=== PATIENT | female | born 1965 | race Caucasian/White ===

== ENCOUNTER 2017-05-08 07:58 | Outpatient (CLI) | payer OTHER | END 2017-05-08 07:59 | disposition home or self-care (01) | LOC: DTY/OP 07:58 | PROVIDERS: ATTEND Surgery | DX: G47.30 Sleep apnea, unspecified (principal) | CPT/HCPCS: 97802 ==

== ENCOUNTER 2018-04-08 08:41 | Outpatient (CLI) | payer OTHER ==
--- NOTE | 2018-04-08 11:51 | MRI ---
MRI LUMBAR SPINE WITHOUT CONTRAST: HISTORY: Acute left-sided back pain with sciatica. Numbness in the left foot and toes. COMPARISON: None. TECHNIQUE: MRI of the lumbar spine is performed without intravenous Gadolinium administration. Multisequential, multiplanar imaging is performed. FINDINGS: Appropriate T1 marrow signal intensity of the lumbar vertebrae. Lumbar spine vertebral body height is maintained. There is no fracture. 3.6 mm of retrolisthesis of L3 upon L4, 5.8 mm anterolisthesis of L4 upon L5, 3.3 mm of retrolisthesis of L5 upon S1. No significant STIR hyperintensity to suggest vertebral body edema or ligamentous injury. Symmetric signal intensity of the psoas muscles. Appropriate signal intensity in the visualized dawna d organs. Right extrarenal pelvis is noted. There is a T2 hyperintensity in the left adnexa, incompletely evaluated and may be of ovarian origin. Nonemergent pelvic ultrasound. Conus medullaris terminates at the mid L1 level. Questionable syrinx in the distal thoracic cord, in completely evaluated. T12-L1: Desiccation with mild to moderate loss of disk space height. Small left and right paracentr al disk bulges with mild central canal stenosis. Mild bilateral foraminal narrowing. L1-L2: Mild loss of disk space height. Broad-based disk bulge results in mild central canal stenosi s. Right and left neural foramina are patent. L2-L3: Adequate disk hydration. No significant central canal stenosis. Neural foramina are patent. L3-L4: Mild loss of disk space height. Broad-based disk bulge, ligamentum flavum thickening, and fa cet hypertrophy result in mild to moderate central canal stenosis. The right neural foramen is paten t. Moderate left foraminal narrowing. L4-L5: Mild loss of disk space height. Broad-based disk bulge, ligamentum flavum thickening, and fa cet hypertrophy result in severe central canal stenosis. Mild right and moderate to severe left fora hortencia narrowing. L5-S1: There is a desiccation with moderate loss of disk space height. There is a broad-based disk bulge which does not cause any significant stenosis of the thecal sac. However, there is narrowing o f both subarticular zones, right greater than left. Partial obscuration of traversing right S1 nerve root. Left subarticular zone is unremarkable. There is moderate to severe right and moderate left foraminal narrowing. There appears to be a left hemilaminotomy defect at L5-S1. Correlate with past medical history. IMPRESSION: 1. Degenerative changes of the lumbar spine as detailed above. 2. Surgery with a hemilaminotomy defect at L5-S1. 3. Questionable syrinx of the distal thoracic cord, incompletely evaluated. Further evaluation with a pre- and postcontrast imaging of the cervical and thoracic spine is recommended to evaluate the co rd and exclude any possible cord abnormality. 4. Possible left ovarian cyst. 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 CODE T POS: [facility]
== END 2018-04-08 08:42 | disposition home or self-care (01) ==
LOC: MRI 08:41
PROVIDERS: ATTEND Family Medicine
DX: M54.42 Lumbago with sciatica, left side (principal); M47.816 Spondylosis without myelopathy or radiculopathy, lumbar region; Z98.890 Other specified postprocedural states
CPT/HCPCS: 72148

== ENCOUNTER 2018-05-13 12:07 | Outpatient (CLI) | payer OTHER ==
--- NOTE | 2018-05-13 16:10 | MRI ---
MRI CERVICAL SPINE WITH AND WITHOUT CONTRAST: Date: 05/13/18 Multiplanar, multisequential imaging of cervical spine obtained. Postcontrast images obtained after a dministration of IV MultiHance. INDICATION: Possible syrinx of cord. Prior MRI of 04/08/18 described evidence of a syrinx in the lower thoracic s pine and further evaluation with pre and postcontrast exam was recommended. FINDINGS: Postoperative changes are seen at the C5-6 level. Anterior plate and screws are present transfixing t hese levels and there is interbody implant. This hardware does produce artifact. The vertebral bodies maintain height and alignment. At the C3-4 level, there is a mild disc bulge present, mildly effacing the anterior subarachnoid spac e. No evidence of cord impingement. There is left facet hypertrophy which does result in left foramin al stenosis. At C4-5, there is mild disc bulge and spondylosis. Mild left uncinate hypertrophy mildly encroaches i nto the left foramina. At C5-6, postoperative changes are noted. Posterior spondylitic changes efface the anterior subarachn oid space. The foramina appear patent. At C6-7, mild disc bulge and spondylitic change flatten the anterior thecal sac. No cord impingement. Evaluation of the spinal cord shows a mildly prominent central canal at the C5-6 level. There is no a bnormal enhancement seen within this cord on the postcontrast images. IMPRESSION: 1. Postoperative changes at C5-6 as described above. There are degenerative changes of spondylosis a s described above. 2. 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 No abnormal enhancement. POS: [facility]
--- NOTE | 2018-05-13 16:14 | MRI ---
MRI OF THORACIC SPINE WITH AND WITHOUT CONTRAST: 05/13/18 Multiplanar and multisequential imaging of thoracic spine obtained. Postcontrast images were obtained . INDICATIONS: MRI of lumbar spine on 04/08/18 described possible syrinx of the lower thoracic cord. Pre and postcont rast MRI was recommended to further evaluate. FINDINGS: The thoracic vertebrae maintain normal height and alignment. There are mild to moderate degenerative changes present with osteophytes from the thoracic vertebra. There is no evidence of vertebral body edema. Mild disc bulges are seen at several levels of the thoracic spine minimally flattening the thecal sac . There are more prominent disc bulges noted at T11-T12 which results in flattening of the anterior t hecal centrally and to the right of midline. The anterior subarachnoid space is preserved and there is no cord impingement. Mild disc bulge at T12-L1 minimally flattens the anterior thecal sac. Otherwise, there is no signifi cant encroachment on the thecal sac. There is no central canal stenosis. No significant foraminal kinjal nosis. Evaluation of the cord on T2 sequence does show a mildly prominent central canal throughout the thora cic cord. There is no abnormal enhancement seen within the thoracic cord. Artifact is seen within the cord on the axial images at several levels; however, no convincing enhancement is present. 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 There is artifact on the postcontrast images; however, no convincing evidence of cord enhancement identifi ed. There is no edema or abnormal T2 signal seen within the cord. POS: [facility]
--- NOTE | 2018-05-13 17:41 | ULT ---
TRANSABDOMINAL PELVIC ULTRASOUND: 05/13/18 INDICATION: History of pelvic cyst. TECHNIQUE: Mccoy scale, color doppler with spectral doppler images were obtained of the pelvis via the transabdom inal approach. No comparisons are available. FINDINGS: The uterus is surgically absent. The left ovary measures 4.3 x 4.1 x 1.9 cm. There is normal flow to the left ovary. The uterus is not visualized consistent with the patient's history of hysterectomy. The right adnexa was not seen. No free fluid is evident. IMPRESSION: 1. Nonvisualization of the uterus and right adnexa. The uterus is probably surgically absent. Th e right adnexa may also be surgically absent as it is not visualized. 2. Left ovary appeared within normal limits sonographically. 3. No free fluid or enlarged lymph nodes evident. POS: [facility]
== END 2018-05-13 12:08 | disposition home or self-care (01) ==
LOC: MRI 12:07
PROVIDERS: ATTEND Family Medicine
DX: G95.0 Syringomyelia and syringobulbia (principal); N83.209 Unspecified ovarian cyst, unspecified side; Q06.4 Hydromyelia; M47.812 Spondylosis without myelopathy or radiculopathy, cervical region; Z98.890 Other specified postprocedural states
CPT/HCPCS: 72156; 72157; 76856; 93976

== ENCOUNTER 2018-07-28 05:13 | Outpatient (CLI) | payer OTHER ==
[2018-07-28 10:02] LABS: Anion Gap 13 mmol/L (10-20); BUN (Urea Nitrogen) 11 mg/dL (9.8-20.1); Calc. Creatinine Clearance 0 mL/min (70-130); Carbon Dioxide 29 mmol/L (22-29); Chloride 102 mmol/L (98-107); Estimated GFR-MDRD Greater than 90; Glucose 99 mg/dL (70-105); Potassium 3.8 mmol/L (3.5-5.1); Sodium 140 mmol/L (136-145)
--- NOTE | 2018-07-28 20:29 | EKG ---
Test Reason : Blood Pressure : / mmHG Vent. Rate : 056 BPM Atrial Rate : 056 BPM P-R Int : 198 ms QRS Dur : 090 ms QT Int : 450 ms P-R-T Axes : 061 043 040 degrees QTc Int : 434 ms Sinus bradycardia Otherwise normal ECG No previous ECGs available Confirmed by LAURA MATHIS, DR. Mullen ([id number]) on 07/28/2018 8:28:40 PM Referred By: IMELDA Confirmed By:DR. Sebas SANCHEZ MD
== END 2018-07-28 05:14 | disposition home or self-care (01) ==
LOC: LABBT 05:13
PROVIDERS: ATTEND Neurological Surgery
DX: Z01.818 Encounter for other preprocedural examination (principal); M54.16 Radiculopathy, lumbar region
CPT/HCPCS: 80048; 93005; 93010

== ENCOUNTER 2018-08-04 06:23 | Day surgery (SDC) | payer OTHER ==
[2018-07-28 08:59] VITALS: BMI 33.3
--- NOTE | 2018-08-03 13:13 | HP ---
HISTORY OF PRESENT ILLNESS: Ms. Morfin is a very pleasant 52-year-old woman, here today for evaluation of 6-month worth of severe left lower extremity L5 pain and numbness with some early weakness with dorsiflexion. She had an MRI, which revealed severe lumbar stenosis at L4-5 centrally and the lateral recesses matching her symptoms well. She denies any right lower extremity symptom of any kind. She has had a previous left L5-S1 surgery some 25 years ago and did very well, but is hopeful to try to avoid this. PAST MEDICAL HISTORY: Significant for hypertension. CURRENT MEDICATIONS: 1. Diclofenac. 2. Gabapentin. 3. Atenolol. 4. Hydrochlorothiazide. 5. Amlodipine. ALLERGIES: NO KNOWN DRUG ALLERGIES. PAST SURGICAL HISTORY: Lumbar laminectomy. REVIEW OF SYSTEMS: The patient denies fever, chills, or weight loss. Denies indigestion or stool incontinence. Denies urinary incontinence or dysuria. Reports leg pain and back pain. Reports numbness and tingling. PHYSICAL EXAMINATION: GENERAL: The patient is alert and oriented x3. MUSCULOSKELETAL: Gait is profoundly antalgic. Lower extremity exam is normal other than left lower extremity with dorsiflexion where strength is pain limited and grade is 4/5. ASSESSMENT: Lumbar radiculopathy. PLAN: Dr. Rai met with the patient, reviewed imaging, and advocated for a left L4-5 decompression. He explained to the patient the risks, benefits, and alternatives to the procedure. The patient expressed understanding and elected to move forward with surgery as discussed. I do believe the patient is mentally competent and capable of making medical decisions for herself and we will move forward with surgery as planned. Job ID: [id number]
[2018-08-04] MEDS ORDERED: Bupivacaine HCl 0.5%/Epinephrine 1:200,000/PF 30 ml Vial ONE (06:48)
[2018-08-04] MEDS ORDERED: Thrombin 5000 UNITS/5 ML VIAL ONE (06:48)
[2018-08-04] MEDS ORDERED: Fentanyl 100 MCG/2 ML VIAL ONE ×4 (08:18→10:16)
--- NOTE | 2018-08-04 09:30 | PRG ---
DATE OF SERVICE: 08/04/2018 SUBJECTIVE: Ms. Morfin is a 52-year-old female, evaluated in the outpatient setting for left leg pain. I talked to her by phone before surgery, met with her this morning before surgery as well. I met with her to review again her imaging, her symptoms, and the planned surgical procedure. She has a distant history of L5-S1 decompression. She now has left leg pain consistent with an L5 radiculopathy with lateral recess stenosis at L4-L5, which I believe to be the culprit in her pain. She continues to manifest a pattern of L5 pain. She reports numbness and she also reports heaviness with prolonged walking suggestive of weakness. PLAN: The plan will be to perform a decompression at L4-L5 in order to decompress the descending L5 nerve root on the left side. I reviewed with her the procedure in detail as well as all the risks, benefits, and alternatives. She has provided informed consent. Job ID: [id number]
--- NOTE | 2018-08-04 10:59 | OP ---
DATE OF PROCEDURE: 08/04/2018 LEGAL OFFICER: Brayden Wan PA-C. INDICATIONS: Pain, numbness, and weakness. DIAGNOSES: Left L5 radiculopathy, left L4-L5 lateral recess stenosis. PROCEDURES PERFORMED: Left L4-L5 hemilaminectomy, medial facetectomy, and decompression. ANESTHESIA: General. DESCRIPTION OF PROCEDURE: The patient was brought into the operating room and placed under general anesthesia. She was flipped from the supine to prone position on the operating room table. The previous linear incision was identified and prepped and draped in the usual sterile fashion. After prepping and draping and after an appropriate preoperative pause, the incision was created. The soft tissues were swept left of midline. Self-retaining retractors were placed in the wound for optimal exposure. After confirming appropriate levels with C-arm fluoroscopy, high-speed cutting drill bit as well as 2, 3, and 4 mm Kerrisons were used to perform a laminectomy along the inferior aspect of L4 and the superior aspect of L5. Inferiorly, there was a fair amount of scar tissue from prior decompression at the level beneath. The superior articulating facet was found to be protruding within the lateral recesses and was removed in order to decompress the descending left L5 nerve root. After decompressing the lateral recess at L4-L5, the wound was irrigated. Hemostasis was maintained throughout. The wound was then closed in anatomic layers and a pressure dressing was applied. There were no known procedural complications. Job ID: [id number]
[2018-08-04] MEDS ORDERED: Promethazine HCl 25 MG/ML VIAL ONE (12:08)
== END 2018-08-04 13:15 | disposition home or self-care (01) ==
LOC: SDC 06:23
PROVIDERS: ATTEND Neurological Surgery
PROC: 01NB0ZZ Release Lumbar Nerve, Open Approach (ICD-10-PCS; principal; 2018-08-04)
DX: M48.061 Spinal stenosis, lumbar region without neurogenic claudication (principal); M54.16 Radiculopathy, lumbar region; I10 Essential (primary) hypertension; Z91.041 Radiographic dye allergy status; Z79.899 Other long term (current) drug therapy
CPT/HCPCS: 76000; J0670; J0690; J2550; J3010

== ENCOUNTER 2019-08-29 14:23 | Outpatient (CLI) | payer OTHER ==
[~2019-08-29 14:23] MED LIST: Magnevist 469MG/ML 20 ML VIAL ONE
--- NOTE | 2019-08-29 16:00 | MRI ---
MRI LUMBAR SPINE WITH AND WITHOUT CONTRAST: DATE: 08/29/2019 HISTORY: 53-year-old female with lumbar radiculopathy COMPARISON: 02/05/2019 TECHNIQUE: Multiple sequences obtained in axial and sagittal planes, pre and post IV injection of gadolinium-bas ed contrast agent. FINDINGS: The labeling of levels on the 04/08/2018 lumbar spine MRI is correct. Please note that the labeling of levels on the 05/13/2018 thoracic spine MRI is incorrect, probably du e to the fact that there is ACDF metallic hardware in the cervical spine on the material worker sagittal sequence. There are 5 lumbar-type vertebrae. Vertebral body heights are maintained. No major bone marrow signal abnormality. Conus medullaris terminates at L1-2. T12-L1:Central and right paracentral disc extrusion with superior and inferior migration of disc mate rial short distances. No high-grade central spinal canal stenosis. No high-grade neural foraminal stenosis. No interval change. L1-2:Central and right paracentral disc extrusion with superior and inferior migration of disc materi al, similar to the 12-L1 level, except that this 1 extend slightly to the left paracentral aspect of the spinal canal. Mild central spinal canal stenosis. This disc extrusion is slightly larger than it was before. No high-grade neural foraminal stenosis. L2-3:Disc space maintained. Mild bilateral paracentral disc protrusions. No central stenosis. No high -grade neural foraminal stenosis. No significant interval change. L3-4:Moderate disc space narrowing with disc desiccation. Superimposed on a diffuse disc bulge, there is central, bilateral paracentral, and bilateral lateral broad-based disc extrusion with short superior and short inferior migrations of disc material, deeply indenting the thecal sac. Moderate ce ntral spinal canal stenosis. Posterior epidural fat pad. Somewhat severe thecal sac stenosis. Mild right and moderate left neural foraminal stenosis. No major interval change. L4-5:Severe bilateral facet DJD causes slight grade 1 anterolisthesis of L4 on L5. Mild to moderate d isc space narrowing. Prominent diffuse disc bulge. Either the disc bulge is asymmetrically larger in the left far lateral aspect, where there is a superimposed broad-based left lateral and far latera l disc herniation. Severe central spinal canal stenosis with crowding of cauda equina and obliteration of CSF signal. Mild to moderate right neural foraminal stenosis. Moderate-severe left ne ural foraminal stenosis, with compression and distortion of the exiting left L4 nerve root. This is either stable or slightly worse than before. L5-S1:Retrolisthesis of L5 on S1. Moderate disc space narrowing. Diffuse disc bulge. Superimposed miriam tral and bilateral paracentral disc herniation. Left hemilaminectomy defect. Postsurgical scar tissue surrounding the left S1 nerve root at the left lateral recess. Bilateral lateral recess stenos is. Mild to moderate central spinal canal stenosis. Moderate to severe right neural foraminal stenosis. Moderate left neural foraminal stenosis. No major interval change. IMPRESSION: 1) lumbar spondylosis with multilevel degenerative disc disease and multilevel disc herniation/disc e xtrusions. 2) severe central spinal canal stenosis at L4-5 due to combination of diffuse disc bulge and grade 1 spondylolisthesis due to severe facet facet osteoarthrosis. 3) chronic high-grade compression of the exiting left L4 nerve root in the left L4-5 neural foramen 4.) High-grade central spinal canal stenosis at L3-4. 5) lateral recess stenosis bilaterally and high-grade bilateral neural foraminal stenosis, at L5-S1 6) status post left hemilaminectomy at L5-S1, with postsurgical scar tissue surrounding the left S1 n erve root at the left lateral recess.
== END 2019-08-29 14:24 | disposition home or self-care (01) ==
LOC: MRI 14:23
PROVIDERS: ATTEND Neurological Surgery
DX: M51.16 Intervertebral disc disorders with radiculopathy, lumbar region (principal); M47.26 Other spondylosis with radiculopathy, lumbar region; M48.061 Spinal stenosis, lumbar region without neurogenic claudication; M48.07 Spinal stenosis, lumbosacral region; M43.16 Spondylolisthesis, lumbar region; Z98.890 Other specified postprocedural states
CPT/HCPCS: 72158; A9579

== ENCOUNTER 2021-07-31 08:05 | Outpatient (CLI) | payer BC ==
[2021-07-31] MEDS ORDERED: Magnevist 469MG/ML 20 ML VIAL ONE (09:56)
== END 2021-07-31 08:06 | disposition home or self-care (01) ==
LOC: TBSIIMAG 08:05
PROVIDERS: ATTEND Neurological Surgery
DX: M47.26 Other spondylosis with radiculopathy, lumbar region (principal); Z98.890 Other specified postprocedural states
CPT/HCPCS: 72158; A9579

== ENCOUNTER 2021-10-15 08:29 | Outpatient (CLI) | payer BC ==
[2021-10-15 10:00] LABS: Hemoglobin 14.3 g/dL (12.0-15.5); Mean Corpuscular HGB CONC 33.8 g/dL (32.0-36.0); Mean Corpuscular Volume 91.6 fl (81.6-98.3); Mean Platelet Volume 10.5 fl (7.4-10.4); Platelet Count 410 10x3/uL (150-450); RBC Distribution Width 14.2 % (11.5-14.5); Red Blood Cell (RBC) Count 4.62 10x6/uL (3.90-5.03); White Blood Cell (WBC) Count 8.5 10x3/uL (3.5-10.5)
[2021-10-15 10:11] LABS: Anion Gap 14 mmol/L (10-20); BUN (Urea Nitrogen) 15 mg/dL (9.8-20.1); Calc. Creatinine Clearance 0 mL/min (70-130); Calcium 9.8 mg/dL (7.8-10.44); Carbon Dioxide 29 mmol/L (22-29); Chloride 102 mmol/L (98-107); Estimated GFR 97; Glucose 119 mg/dL (70-105); Sodium 141 mmol/L (136-145)
== END 2021-10-15 08:30 | disposition home or self-care (01) ==
LOC: LABBT 08:29
PROVIDERS: ATTEND Neurological Surgery
DX: Z01.818 Encounter for other preprocedural examination (principal); M54.16 Radiculopathy, lumbar region; Z20.822 Contact with and (suspected) exposure to COVID-19
CPT/HCPCS: 80048; 85027; 87811; 93005; 93010